=== PATIENT | female | born 1990 | race Caucasian/White ===

== ENCOUNTER 2018-01-14 12:26 | Inpatient (IN) | payer OTHER ==
[2018-01-14] MEDS ORDERED: ceFAZolin IV 2 gm in Dextrose 2 GM/50 ML BAG IVPB ONE (12:42)
[2018-01-14] MEDS ORDERED: Lactated Ringer's 1,000 ML IV ONE (12:42)
[2018-01-14 12:46] VITALS: BMI 26.4
[2018-01-14] MEDS ORDERED: Oxytocin 30 units/LR 500ML 30 U/500 ML BAG IV ONE (13:19)
[2018-01-14 13:52] LABS: BASO % 0.2 % (0.0-2.0); EOS % 0.3 % (0.0-4.0); HEMOGLOBIN 12.1 g/dL (12.0-16.0); MEAN CELL VOLUME 97.8 fl (81.0-99.0); MEAN CORPUSCULAR HEMOGLOBIN 32.9 pg (27.0-31.0); MEAN CORPUSCULAR HGB CONC 33.6 g/dL (33.0-37.0); MEAN PLATELET VOLUME 11.1 fl (7.2-11.7); MONO % 7.6 % (0.0-10.0); NEUT # 9.7 K/uL (1.8-7.0); NEUT % 75.9 % (50.0-75.0); NRBC % 0.1 % (0.0-0.0); RBC 3.68 Mil/uL (3.80-5.20); RED CELL DISTRIBUTION WIDTH 13.6 % (11.5-14.5); WHITE BLOOD COUNT 12.7 K/uL (4.8-10.8)
[2018-01-14] MEDS ORDERED: Morphine 1 mg/ml preservative-free Inj(Duramorph) ONE (14:20)
[2018-01-14] MEDS ORDERED: ePHEDrine 50 mg/ml Inj ONE (14:29)
[2018-01-14 16:36] VITALS: RESP 18; TEMP 98.3; O2SAT 99
[2018-01-14] MEDS ORDERED: Oxycodone/Acetaminophen 5/325 mg Tab PO PRN (17:43)
[2018-01-14] MEDS ORDERED: Acetaminophen-Codeine 300/30 mg Tab PO PRN (17:43)
[2018-01-14] MEDS ORDERED: Simethicone 80 mg Chewtab PO SCH (22:00)
[2018-01-14] MEDS: Simethicone 80 mg Chewtab PO SCH (22:33)
[2018-01-14] MEDS ORDERED: Lactated Ringer's 1,000 ML IV SCH (23:45)
--- NOTE | 2018-01-15 02:01 | OP ---
PROCEDURE DATE: 01/14/2018 PREOPERATIVE DIAGNOSES: Intrauterine at 39 weeks, history of previous section. The patient declined trial of labor. POSTOPERATIVE DIAGNOSES: Intrauterine at 39 weeks, history of previous section. The patient declined trial of labor. OPERATION PERFORMED: Repeat low flap transverse section by a Pfannenstiel skin incision. SURGEON: Kodak Staley MD CATEGORY MANAGER: Mago Martin MD. She was helpful in creating exposure, obtaining hemostasis, delivering the , and closure of the patient. The procedure would not have been possible without her assistance. TYPE OF ANESTHESIA: Spinal. ANESTHESIA ADMINISTERED BY: Dr. Morales. ESTIMATED BLOOD LOSS: 800 mL. URINE OUTPUT: Garrett catheter put out approximately 200 mL of clear urine. INTRAVENOUS FLUID INTAKE: The patient received approximately 1200 mL of D5 LR intraoperatively. OPERATIVE FINDINGS: Baby girl, vertex presentation, Apgars 9 and 9, weighing 2820 gm; normal uterus, tubes, and ovaries were identified. COMPLICATIONS: There were no complications. DESCRIPTION OF PROCEDURE: After informed consent was obtained, the patient was taken to the operating room where she was given spinal anesthesia. She was then prepped and draped in a normal sterile fashion with a leftward tilt. A Pfannenstiel skin incision was then made with a scalpel and carried down to the underlying layer of fascia. The fascia was nicked in the midline. The fascial incision was then extended laterally with a curved Fisher scissors. The superior aspect of the fascial incision was then grasped with Em clamps, elevated up, and the rectus muscles were dissected off using both sharp and blunt dissection. Attention was then turned to the inferior aspect of the fascial incision, which in a similar fashion, was grasped with a Em clamps, elevated up, and the rectus muscles were dissected off using both sharp and blunt dissection. The rectus muscles were then in the midline. The peritoneum identified and entered sharply with the Metzenbaum scissors. The peritoneal incision was then extended superiorly and inferiorly with good visualization of the bladder. The bladder blade was inserted. The vesicouterine peritoneum was identified and entered sharply with the Metzenbaum scissors. The incision was then extended laterally, the bladder flap was created digitally. The bladder blade was then inserted and a low transverse incision was made with a scalpel. The incision was then extended laterally with the bandage scissors. The was then delivered atraumatically. Nose and mouth were suctioned with DeLee suction trap. The cord was clamped and cut. The infant was handed off to awaiting pediatricians. The placenta was then removed manually. The uterus was exteriorized and cleared off all clots and debris. The uterine incision was repaired with 0 Vicryl in a running locked fashion. A second layer of the same suture was used to obtain excellent hemostasis. The abdomen was then copiously irrigated. The irrigant was removed with the suction device. The gutters were then cleared of all clots and debris. The incision was examined and noted to be hemostatic. The peritoneum was then closed with 2-0 Vicryl in a running locked fashion. The muscle was reapproximated with 0 Vicryl in an interrupted fashion. The fascia was closed with 0 Vicryl in a running fashion. The skin was closed with 3-0 on a Sage needle. All sponge, lap, needle and instrument counts were correct x2, and the patient was taken to the recovery room in awake and stable condition. Kodak Staley MD
[2018-01-15] MEDS: Simethicone 80 mg Chewtab PO SCH ×4 (04:09→21:48)
--- NOTE | 2018-01-15 07:24 | OBPPN ---
Datetime: 01/15/2018 07:16 PP Pain Prov: Within normal limits PP Nausea Prov: Denies PP Flatus Prov: Yes PP BM Prov: No PP Abdomen/Uterus Prov: Normal PP Lochia Prov: Normal PP Vulva/Perineum Prov: Not Done PP Extremities Prov: Normal PP C/S Incision Prov: Normal PP Progress Prov: Not Applicable PP Comments Phys Exam Prov: Incision w/ bandage in place PP Impression Prov: Normal progression PP Plan Prov: Continue present management PP Progress Note Prov: POD 1/ s/p c/s, doing well, bottle feeding. Continue current care. Vital Signs Provider PP: Reviewed
[2018-01-15] MEDS ORDERED: Multivitamin With Minerals Tab PO SCH (09:00)
[2018-01-15 13:35] LABS: BASO % 0.2 % (0.0-2.0); EOS % 0.1 % (0.0-4.0); HEMOGLOBIN 8.1 g/dL (12.0-16.0); LYMPH # 2.6 K/uL (1.0-4.3); LYMPH % 14.1 % (20.0-40.0); MEAN CELL VOLUME 98.4 fl (81.0-99.0); MEAN CORPUSCULAR HEMOGLOBIN 33.1 pg (27.0-31.0); MEAN CORPUSCULAR HGB CONC 33.6 g/dL (33.0-37.0); MEAN PLATELET VOLUME 10.2 fl (7.2-11.7); MONO # 1.2 K/uL (0.0-0.8); MONO % 6.6 % (0.0-10.0); NEUT # 14.5 K/uL (1.8-7.0); NRBC % 0.1 % (0.0-0.0); RBC 2.44 Mil/uL (3.80-5.20); RED CELL DISTRIBUTION WIDTH 13.8 % (11.5-14.5); WHITE BLOOD COUNT 18.3 K/uL (4.8-10.8)
[2018-01-15] MEDS: Oxycodone/Acetaminophen 5/325 mg Tab PO PRN (15:03)
[2018-01-16] MEDS: Oxycodone/Acetaminophen 5/325 mg Tab PO PRN ×3 (02:40→15:17)
[2018-01-16] MEDS: Simethicone 80 mg Chewtab PO SCH ×4 (04:00→22:03)
[2018-01-16] MEDS: Multivitamin With Minerals Tab PO SCH (08:17)
[2018-01-16] MEDS: Benzocaine/Menthol (Cepacol) Lozenge PO SCH ×3 (08:49→16:42)
--- NOTE | 2018-01-16 10:52 | OBPPN ---
Datetime: 01/16/2018 08:42 PP Pain Prov: Within normal limits PP Nausea Prov: Denies PP Flatus Prov: Yes PP BM Prov: Yes PP Heart Prov: Normal PP Lungs Prov: Normal PP Abdomen/Uterus Prov: Normal PP CVA Tenderness Prov: Normal PP Extremities Prov: Normal PP C/S Incision Prov: Normal PP Impression Prov: Normal progression PP Plan Prov: Continue present management PP Progress Note Prov: 27 y/o now seen and examined at bedside s/p repeat on POD 2. Pt reports edema o f uvula. Denies any sore throat, swallowing difficulty, drooling, dyspnea or wheezing. Pt reports pa in at the site and pain is controlled with pain medications. Pt is tolerating po diet well. Pt reports passing gas per rectum and BM last night. Voiding w/o difficulty. Denies chest pain, d yspnea, headache, dizziness or calf pain. Pt is bottlefeeding her baby. Physical Exam: General: A_O, resting comfortably in bed, NAD HEENT: oral mucosa moist, mild edema of uvula. Uvula midline. No erythema of posterior pharynx. No drooling. Lungs: CTA B/L, no wheezing, rhonchi or rales CVS: RRR, normal S1, S2 ABD: ND, +BS; Incision: Incision clean, dry and intact. No induration, redness or fluctuation. Steri strips int act, no dehiscence EXT: no edema, negative Kain's sign Neuro/psych: AAOX3 Assessment: 27 yo now s/p repeat doing well on POD 2 Uvular edema Plan: Monitor Uvular edema ( tolerating po. No respiratory distress). Continue regular diet as tolerated. SCD for DVT prophylaxis Percocet and Ibuprofen for pain management Colace for constipation consultation Encourage and ambulation. Mati, pgy-2 Case d/w on-call OB Hospitalist Addendum by Dr. cole: I have evaluated the patient independently and Iagree with the above Vital Signs Provider PP: Reviewed; Within Normal Limits
[2018-01-17] MEDS: Benzocaine/Menthol (Cepacol) Lozenge PO SCH ×3 (00:18→08:45)
[2018-01-17] MEDS: Oxycodone/Acetaminophen 5/325 mg Tab PO PRN ×3 (00:18→11:06)
[2018-01-17] MEDS: Simethicone 80 mg Chewtab PO SCH ×2 (05:40→09:20)
[2018-01-17] MEDS: Multivitamin With Minerals Tab PO SCH (08:44)
--- NOTE | 2018-01-17 16:16 | OBPPN ---
Datetime: 01/17/2018 06:03 PP Pain Prov: Within normal limits PP Nausea Prov: Denies PP Flatus Prov: Yes PP BM Prov: Yes PP Breasts Prov: Normal PP Heart Prov: Normal PP Lungs Prov: Normal PP Abdomen/Uterus Prov: Normal PP Lochia Prov: Normal PP CVA Tenderness Prov: Normal PP Extremities Prov: Normal PP C/S Incision Prov: Normal PP Progress Prov: Not Applicable PP Comments Phys Exam Prov: pfannensteil incision: c/d/i PP Impression Prov: Normal progression PP Plan Prov: Discharge PP Progress Note Prov: 27 y/o , 3 days s/p . No significant events occurred overnigh t. Incision site healing well, no exudate observed, dry and intact. Patient denied any fever, chills, chest pain, dyspnea, dizziness, nausea, vomiting or diarrhea. Patient is on PO diet and tolerating i t well. PE: General: Patient appears well Cardio:s1s2 normal, no murmurs Resp:b/l breath sounds Abd:bowel sounds auscultated Ext:no tenderness Neuro/Psych: A _ O x 3 A/P: DC home today 1. Encourage . 2. Ibuprofen as needed for moderate pain and Percocet as needed for severe pain. 3. Ambulate as tolerated. 4. 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 If you develop and worsening pain, please go to the ED. 6. No heavy lifting, avoid stairs, if excessive bleeding or fever, please go to the ED. Aliya Pinto, PGY-1 OB hospitalist attending: Patient seen and examined by me. Patient pain to her. She states she is not going to breast-feed. She states she didn't benefit of breast-feeding. She has no complaints. Plan: Benefits that breast-feeding discussed with patient. Patient given prescription for Percocet and Motrin for pain. Patient was advised to minimize her i ntake of Percocet and the addictive nature of the medication. Rx also given her iron therapy at [facility] 10/19/2024 milligrams 2 pills daily. Rx given for Ariana S IP PP Procedures: None Vital Signs Provider PP: Reviewed
--- NOTE | 2018-01-17 16:28 | OBDCSUM ---
Datetime: 01/17/2018 06:07 Discharged to, Provider: Home Follow up at, Provider: [facility] Disch Instr Activity: Normal activity; May Shower Disch Instr Diet: Regular Discharge Instructions, Provider: Routine instructions given Discharge Diagnosis, Provider: Term Delivered Discharge Time: 01/17/2018 12:00 Follow up in weeks, Provider: 1 week Disch Referrals: None Contraception discussed, Prov: Yes Disch Activity Restrictions: No exercising; No lifting; No driving; Minimize stair-climbing; No sexu al activity; Nothing in vagina - [place], tampons, douche Discharge Comment, Provider: 1. Encourage . 2. Ibuprofen as needed for moderate pain and Percocet (NO DRIVING WHILE TAKING PERCOCET) as needed for severe pain. 3. Ambulate as tolerated. 4. f/u NB visits 3-7 days with digital recruiter and PP visit 6 weeks with OB; wound care 4-7 days 5. If you develop and worsening pain, please go to the ED. 6. No heavy lifting, avoid stairs, if excessive bleeding or fever, please go to the ED. Aliya Pinto, PGY-1 OB attending addendum: Addition _ clarification of above. Stair-climbing okay but recommend minimize see pn. Contraception after Delivery: Depo-Provera
[2018-01-17 21:06] VITALS: BP 129/69; PULSE 99
== END 2018-01-17 14:20 | disposition home or self-care (01) | DRG 371 ==
LOC: H.L&D 12:44 → H.OB/GYN 18:00
PROVIDERS: ADMIT Obstetrics & Gynecology; ATTEND Obstetrics & Gynecology
PROC: 10D00Z1 Extraction of Products of Conception, Low, Open Approach (ICD-10-PCS; principal; 2018-01-14)
PROC: 4A1HXCZ Monitoring of Products of Conception, Cardiac Rate, External Approach (ICD-10-PCS; 2018-01-14)
DX: O34.211 Maternal care for low transverse scar from previous cesarean delivery (principal); Z3A.39 39 weeks gestation of pregnancy; Z37.0 Single live birth

== ENCOUNTER 2018-02-16 01:07 | Emergency (ER) | payer OTHER ==
[2018-02-16 01:12] VITALS: BMI 23.2
[2018-02-16] MEDS ORDERED: Sodium Chloride 0.9% 1,000 ML IV STA (01:29)
[2018-02-16 02:00] LABS: BASO % 0.5 % (0.0-2.0); EOS % 0.6 % (0.0-4.0); HEMOGLOBIN 11.7 g/dL (12.0-16.0); LYMPH # 0.9 K/uL (1.0-4.3); LYMPH % 21.2 % (20.0-40.0); MEAN CELL VOLUME 98.2 fl (81.0-99.0); MEAN CORPUSCULAR HGB CONC 32.6 g/dL (33.0-37.0); MEAN PLATELET VOLUME 8.3 fl (7.2-11.7); MONO # 0.7 K/uL (0.0-0.8); MONO % 16.4 % (0.0-10.0); NEUT # 2.7 K/uL (1.8-7.0); NEUT % 61.3 % (50.0-75.0); NRBC % 0.1 % (0.0-0.0); RBC 3.65 Mil/uL (3.80-5.20); RED CELL DISTRIBUTION WIDTH 13.7 % (11.5-14.5); WHITE BLOOD COUNT 4.4 K/uL (4.8-10.8)
[2018-02-16 02:10] LABS: SQUAMOUS EPITHIAL 17 /hpf (0-5); URINE BACTERIA OCC (<OCC); URINE BILIRUBIN NEGATIVE (NEGATIVE); URINE BLOOD SMALL (NEGATIVE); URINE CLARITY CLOUDY (Clear); URINE COLOR YELLOW (YELLOW); URINE GLUCOSE (UA) NEG (Normal); URINE LEUKOCYTE ESTERASE NEG Leu/uL (Negative); URINE PROTEIN NEGATIVE (NEGATIVE); URINE UROBILINOGEN 0.2-1.0 mg/dL (0.2-1.0)
[2018-02-16 02:15] LABS: BLOOD UREA NITROGEN 9 mg/dl (7-17); CALCIUM 8.7 mg/dL (8.4-10.2); GFR AFRICAN-AMERICAN > 60; GFR NON-AFRICAN AMERICAN > 60
--- NOTE | 2018-02-16 03:12 | ED PDOC ---
HPI: Fever Fever Onset Was: 02/14/18 Additional Comments: 27 y/o female with a PMHx of anemia s/p one month ago presents to the ED complaining of a fever associated with chills, dizziness and occasional nausea. Patient reports of taking Tylenol at home for the past 2 days with no relief. Patient reports fever Tmax = 102.5. Denies vomiring, cough, abdominal pain, headahces, and urinary symptoms. Past Medical History Reviewed: Historical Data, Nursing Documentation, Vital Signs Vital Signs: Last Vital Signs Temp 98.3 F 02/16/18 03:36 Pulse 63 02/16/18 03:36 Resp 18 02/16/18 03:36 BP 145/90 02/16/18 03:36 Pulse Ox 100 02/16/18 03:36 - Medical History PMH: Anemia (s/p ) Denies: Depression, Diabetes, HTN - Surgical History Surgical History: - Family History Family History: States: Unknown Family Hx - Home Medications Home Medications: Ambulatory Orders Medication Instructions Recorded Vit #76/Iron,Carb/FA [Pnv 1 each PO DAILY 01/14/18 29-1 Tablet] Ascorbic Acid 500 mg PO BID #60 tablet 01/17/18 Docusate [Colace] 100 mg PO BID #60 cap 01/17/18 Ferrous Sulfate [Feosol] 325 mg PO BID #60 tab 01/17/18 Ibuprofen [Motrin Tab] 600 mg PO Q6H PRN #30 tab 01/17/18 oxyCODONE/Acetaminophen [Percocet 1 tab PO Q4 PRN #20 tab 01/17/18 5/325 mg Tab] Amoxicillin 500 mg PO BID #7 tab 02/16/18 - Allergies Allergies/Adverse Reactions: Allergies Allergy/AdvReac Type Severity Reaction Status Date / Time No Known Allergies Allergy Verified 01/14/18 12:42 Review of Systems Review Of Systems: ROS cannot be obtained secondary to pt's inabilty to answer questions. Constitutional: Positive for: Fever, Chills Respiratory: Negative for: Cough Gastrointestinal: Positive for: Nausea (occasional ). Negative for: Vomiting, Abdominal Pain Genitourinary Female: Negative for: Dysuria, Frequency, Hematuria Neurological: Positive for: Dizziness. Negative for: Headache Physical Exam - Reviewed Nursing Documentation Reviewed: Yes Vital Signs Reviewed: Yes - Physical Exam Appears: Positive for: No Acute Distress Head Exam: Positive for: ATRAUMATIC, NORMOCEPHALIC Skin: Positive for: Normal Color, Warm, Dry Eye Exam: Positive for: Normal appearance, EOMI, PERRL Neck: Positive for: Normal, Painless ROM, Supple Cardiovascular/Chest: Positive for: Regular Rate, Rhythm. Negative for: Murmur Respiratory: Positive for: Normal Breath Sounds. Negative for: Respiratory Distress Gastrointestinal/Abdominal: Positive for: Normal Exam, Soft, Other ( scar evident on exam with no surrounding erythema, no drainage and no tenderness to palpation. ). Negative for: Tenderness Extremity: Positive for: Normal ROM. Negative for: Deformity Neurologic/Psych: Positive for: Alert, Oriented. Negative for: Motor/Sensory Deficits - Laboratory Results Result Diagrams: 02/16/18 01:45 02/16/18 01:45 - ECG O2 Sat by Pulse Oximetry: 98 (RA) Pulse Ox Interpretation: Normal Medical Decision Making Medical Decision Making: Time: 0145 Patient presenting with fever and likely dehydration Will check labwork, hydrate, and re-herman Plan: -- Urinalysis -- Influenza A B -- Sodium Chloride IV 1000 mls/hr -- CBC with differentials -- BMP -- Lact Acid, Plasma Time: 0250 Plan: -- On re-evaluation, patient is now feeling better. The origin of the fever is still unknown at this time. Patient will receive a course of antibiotics in case fever is bacterial and to avoid getting child sick and at risk for infection. -- Patient is in good condition for discharge. Scribe Attestation: Documented by Kya Mirza acting as a scribe for Dr. Nghia Conrad MD. Provider Scribe Attestation: All medical record entries made by the Scribe were at my direction and personally dictated by me. I have reviewed the chart and agree that the record accurately reflects my personal performance of the history, physical exam, medical decision making, and the department course for this patient. I have also personally directed, reviewed, and agree with the discharge instructions and disposition. Disposition - Clinical Impression Clinical Impression: Fever Counseled Patient/Family Regarding: Studies Performed, Diagnosis, Need For Followup - Disposition Referrals: Jm Aguirre MD [Primary Care Provider] - Disposition: Routine/Home Disposition Time: 02:50 Condition: STABLE Additional Instructions: Please followup with Dr. Aguirre in 1 - 2 days for a checkup. Prescriptions: Amoxicillin 500 mg PO BID #7 tab Instructions: Fever of Unknown Origin (DC) Forms: [employer] (Spanish)
[2018-02-16 03:37] VITALS: BP 145/90; PULSE 63; RESP 18; TEMP 98.3
[2018-02-16 04:53] VITALS: O2SAT 98
== END 2018-02-16 03:36 | disposition home or self-care (01) ==
LOC: H.ER 01:07
DX: R50.9 Fever, unspecified (principal); D64.9 Anemia, unspecified
CPT/HCPCS: 80048; 81003; 83605; 85025; 87804; 96360; 99283; J7030